=== PATIENT | female | born 1995 | race Caucasian/White ===

== ENCOUNTER → 2025-03-14 | Outpatient (CLI) | payer OTHER | LOC: M WHC 13:04 | PROVIDERS: ATTEND Nurse Practitioner Family | DX: N63.20 Unspecified lump in the left breast, unspecified quadrant (principal); N63.11 Unspecified lump in the right breast, upper outer quadrant; N64.4 Mastodynia; R92.313 Mammographic fatty tissue density, bilateral breasts | CPT/HCPCS: 76641; 77066; G0279 ==